=== PATIENT | female | born 1955 | race African-American/Black ===

== ENCOUNTER 2024-11-30 05:34 | Day surgery (SDC) | payer OTHER ==
[2024-11-25 14:47] VITALS: BMI 31.2
[2024-11-30] MEDS ORDERED: PROPOFOL 20 ML ONE (13:35)
[2024-11-30] MEDS ORDERED: MIDAZOLAM HCL 2 MG/2 ML SINGLE DOSE VIAL ONE (13:36)
[2024-11-30] MEDS ORDERED: ceFAZolin SODIUM 1 GM VIAL ONE (14:15)
[2024-11-30] MEDS: ceFAZolin SODIUM 1 GM VIAL IVPB ONE (14:15)
[2024-11-30] MEDS ORDERED: ONDANSETRON 4 MG/2 ML VIAL ONE (14:31)
[2024-11-30] MEDS ORDERED: DEXAMETHASONE SOD PHOSPHATE 4 MG/1 ML VIAL ONE (14:31)
[2024-11-30] MEDS ORDERED: KETOROLAC TROMETHAMINE 30 MG/1 ML VIAL ONE (14:31)
[2024-11-30] MEDS ORDERED: oxyCODONE HCL 5 MG TABLET PO PRN (14:54)
[2024-11-30] MEDS ORDERED: ONDANSETRON 4 MG/2 ML VIAL IVPUSH PRN (14:54)
[2024-11-30] MEDS ORDERED: LACTATED RINGERS SOLUTION 1,000 ML IV SCH (15:00)
[2024-11-30 18:04] VITALS: BP 141/67; PULSE 65; RESP 18; TEMP 97.5
== END 2024-11-30 18:14 | disposition home or self-care (01) ==
LOC: JASU-SURG 05:34
PROVIDERS: ATTEND Obstetrics & Gynecology
PROC: 0U7 Female Reproductive System, Dilation (ICD-10-PCS; principal; 2024-11-30 13:00)
DX: N95.0 Postmenopausal bleeding (principal); N88.2 Stricture and stenosis of cervix uteri
CPT/HCPCS: 76998-TC; 94760